=== PATIENT | female | born 1945 | race Caucasian/White ===

== ENCOUNTER 2023-08-12 12:54 | Emergency (ER) | payer MEDICARE, SELFPAY ==
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
--- NOTE | ~2023-08-12 | XR_ITS ---
EXAMINATION: XR RIBS, LEFT. XR SHOULDER, LEFT. XR HUMERUS, LEFT. XR ELBOW, LEFT. XR SACRUM AND COCCYX. CLINICAL INFORMATION: Fall with pain COMPARISON: None. TECHNIQUE: AP radiograph of the chest with 3 left-sided rib specific views. 3 views of the left shoulder. AP and lateral views of the left humerus. 3 views of the left elbow. AP and lateral views of the sacrum and coccyx. FINDINGS: Chest and left RIBS: Lungs appear clear with no consolidation, edema, or effusion. No displaced rib fracture. Left shoulder: No acute fracture or malalignment. Left humerus: No fracture. Left elbow: No fracture or malalignment. No joint effusion. Sacrum and coccyx: No obvious fracture or malalignment. Evaluation is limited due to osteopenia and overlying bowel/stool. XR/XR ribs LT min 3V w CXR1V IMPRESSION: No acute abnormality of the chest, left shoulder, left humerus, left elbow, or sacrum and coccyx. Evaluation the sacrum/coccyx is limited due to osteopenia and overlying bowel/stool.
--- NOTE | ~2023-08-12 | XR_ITS ---
EXAMINATION: XR RIBS, LEFT. XR SHOULDER, LEFT. XR HUMERUS, LEFT. XR ELBOW, LEFT. XR SACRUM AND COCCYX. CLINICAL INFORMATION: Fall with pain COMPARISON: None. TECHNIQUE: AP radiograph of the chest with 3 left-sided rib specific views. 3 views of the left shoulder. AP and lateral views of the left humerus. 3 views of the left elbow. AP and lateral views of the sacrum and coccyx. FINDINGS: Chest and left RIBS: Lungs appear clear with no consolidation, edema, or effusion. No displaced rib fracture. Left shoulder: No acute fracture or malalignment. Left humerus: No fracture. Left elbow: No fracture or malalignment. No joint effusion. Sacrum and coccyx: No obvious fracture or malalignment. Evaluation is limited due to osteopenia and overlying bowel/stool. XR/XR shoulder LT min 2V IMPRESSION: No acute abnormality of the chest, left shoulder, left humerus, left elbow, or sacrum and coccyx. Evaluation the sacrum/coccyx is limited due to osteopenia and overlying bowel/stool.
--- NOTE | ~2023-08-12 | XR_ITS ---
EXAMINATION: XR RIBS, LEFT. XR SHOULDER, LEFT. XR HUMERUS, LEFT. XR ELBOW, LEFT. XR SACRUM AND COCCYX. CLINICAL INFORMATION: Fall with pain COMPARISON: None. TECHNIQUE: AP radiograph of the chest with 3 left-sided rib specific views. 3 views of the left shoulder. AP and lateral views of the left humerus. 3 views of the left elbow. AP and lateral views of the sacrum and coccyx. FINDINGS: Chest and left RIBS: Lungs appear clear with no consolidation, edema, or effusion. No displaced rib fracture. Left shoulder: No acute fracture or malalignment. Left humerus: No fracture. Left elbow: No fracture or malalignment. No joint effusion. Sacrum and coccyx: No obvious fracture or malalignment. Evaluation is limited due to osteopenia and overlying bowel/stool. XR/XR sacrum coccyx min 2V IMPRESSION: No acute abnormality of the chest, left shoulder, left humerus, left elbow, or sacrum and coccyx. Evaluation the sacrum/coccyx is limited due to osteopenia and overlying bowel/stool.
--- NOTE | ~2023-08-12 | XR_ITS ---
EXAMINATION: XR RIBS, LEFT. XR SHOULDER, LEFT. XR HUMERUS, LEFT. XR ELBOW, LEFT. XR SACRUM AND COCCYX. CLINICAL INFORMATION: Fall with pain COMPARISON: None. TECHNIQUE: AP radiograph of the chest with 3 left-sided rib specific views. 3 views of the left shoulder. AP and lateral views of the left humerus. 3 views of the left elbow. AP and lateral views of the sacrum and coccyx. FINDINGS: Chest and left RIBS: Lungs appear clear with no consolidation, edema, or effusion. No displaced rib fracture. Left shoulder: No acute fracture or malalignment. Left humerus: No fracture. Left elbow: No fracture or malalignment. No joint effusion. Sacrum and coccyx: No obvious fracture or malalignment. Evaluation is limited due to osteopenia and overlying bowel/stool. XR/XR humerus LT IMPRESSION: No acute abnormality of the chest, left shoulder, left humerus, left elbow, or sacrum and coccyx. Evaluation the sacrum/coccyx is limited due to osteopenia and overlying bowel/stool.
--- NOTE | ~2023-08-12 | XR_ITS ---
EXAMINATION: XR RIBS, LEFT. XR SHOULDER, LEFT. XR HUMERUS, LEFT. XR ELBOW, LEFT. XR SACRUM AND COCCYX. CLINICAL INFORMATION: Fall with pain COMPARISON: None. TECHNIQUE: AP radiograph of the chest with 3 left-sided rib specific views. 3 views of the left shoulder. AP and lateral views of the left humerus. 3 views of the left elbow. AP and lateral views of the sacrum and coccyx. FINDINGS: Chest and left RIBS: Lungs appear clear with no consolidation, edema, or effusion. No displaced rib fracture. Left shoulder: No acute fracture or malalignment. Left humerus: No fracture. Left elbow: No fracture or malalignment. No joint effusion. Sacrum and coccyx: No obvious fracture or malalignment. Evaluation is limited due to osteopenia and overlying bowel/stool. XR/XR elbow LT min 3V IMPRESSION: No acute abnormality of the chest, left shoulder, left humerus, left elbow, or sacrum and coccyx. Evaluation the sacrum/coccyx is limited due to osteopenia and overlying bowel/stool.
[2023-08-12 13:15] VITALS: BP 120/80; BP 150/72; PULSE 78; PULSE 82; RESP 17; TEMP 36.6; O2SAT 91; O2SAT 94; BMI 19.5
[2023-08-12 13:23] VITALS: BP 150/72; PULSE 78; RESP 17; TEMP 36.6; O2SAT 93
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
[2023-08-12 17:23] VITALS: BP 154/81; PULSE 74; RESP 16; TEMP 37.2; O2SAT 98
--- NOTE | 2023-08-12 18:45 | PC.NURSE ---
Report called to Zoey WEINSTEIN at [facility].
[2023-08-12 18:52] VITALS: BP 125/85; PULSE 88; RESP 20; TEMP 36.9; O2SAT 93
[2023-08-12 19:13] VITALS: BP 125/85; PULSE 88; RESP 20; TEMP 36.9; O2SAT 93
== END 2023-08-12 19:18 | disposition home or self-care (01) ==
PROVIDERS: Emergency Provider Emergency Medicine
DX: J34.89 Other specified disorders of nose and nasal sinuses (principal); T14.90XA Injury, unspecified, initial encounter; M54.2 Cervicalgia; M79.622 Pain in left upper arm; R07.81 Pleurodynia; M54.50 Low back pain, unspecified; Y04.2XXA Assault by strike against or bumped into by another person, initial encounter; Y93.9 Activity, unspecified; Y92.238 Other place in hospital as the place of occurrence of the external cause; Y99.9 Unspecified external cause status
CPT/HCPCS: 70450; 71101; 72125; 72220; 73030; 73060; 73080; 99284